=== PATIENT | female | born 1940 | race African-American/Black ===

== ENCOUNTER 2020-07-02 19:07 | Inpatient (IN) | payer MEDICARE ==
[~2020-07-02] VITALS: Ht 152.4 cm; Wt 51.3 kg
--- NOTE | 2020-07-02 19:18 | NUR ---
at bedside for MSE.
[2020-07-02] MEDS ORDERED: TRAZ-182 PO (19:27)
[2020-07-02] MEDS ORDERED: MIRT15TA7 PO (19:27)
[2020-07-02] MEDS ORDERED: AMLO10TA7 PO (19:27)
[2020-07-02] MEDS ORDERED: BENA20TA9 PO (19:27)
[2020-07-02] MEDS ORDERED: ARIP15TA3 PO (19:27)
[2020-07-02] MEDS ORDERED: CLON1TAB12 PO (19:27)
--- NOTE | 2020-07-02 19:39 | NUR ---
Pt medically cleared pt. MHU contacted for room, 139 A given. MHU nurse will call back for report.
[2020-07-02] MEDS ORDERED: NITROFURANTOIN/NITROFURAN MAC 100 MG CAPSULE PO ONE ×2 (19:45→19:46)
--- NOTE | 2020-07-02 20:25 | NUR ---
Report given to Saadia TIRADO. Pt admitted to [facility]. Adm MD: Dr. Lerma/Karla.
[2020-07-02 20:34] LABS: *BILIRUBIN,URIN 1+ (NEGATIVE); *CLARITY,URINE CLEAR (CLEAR); *COLOR,URINE YELLOW (YELLOW); *KETONES,URINE NEGATIVE (NEGATIVE); *UROBILINOGEN,URINE 0.2 E.U./dl (NORMAL); LEUKOCYTE ESTERASE ,URINE NEGATIVE (NEGATIVE); NITRITE, URINE NEGATIVE (NEGATIVE); PH,URINE 5.5 (5.0-8.0); UGLUCOSE NEGATIVE (NEGATIVE)
[2020-07-02 20:35] LABS: *BLOOD, URINE TRACE INTACT (NEGATIVE)
[2020-07-02] MEDS ORDERED: ACETAMINOPHEN 325 MG TABLET PO PRN (20:45)
[2020-07-02] MEDS ORDERED: TEMAZEPAM 7.5 MG CAPSULE PO PRN (20:45)
[2020-07-02] MEDS ORDERED: BLOOD SUGAR DIAGNOSTIC 1 EACH STRIP VI ONE (20:45)
[2020-07-02] MEDS ORDERED: MAG HYDROX/AL HYDROX/SIMETH 30 ML LIQUID UDC PO PRN (20:45)
[2020-07-02] MEDS ORDERED: MAGNESIUM HYDROXIDE 30 ML LIQUID UDC PO PRN (20:45)
--- NOTE | 2020-07-02 20:45 | NUR ---
GPS ADMISSION NOTE: Patient is a 79 year old female, brought in to the hospital via ambulance from [facility], admitted on a 5150 from an assisted living.Patient is admitted on a 5150 for GD. Per hold patient is throwing away her psychiatric medications, increasingly paranoid when offered food. Increased deteriation , not eating and covered in feces. Upon face to face evaluation patient appeared unkept and disheveled. Her behavior was anxious and disoriented to place and reason why she was here. When offered a snack , the patient refused. A shower was given and the patient looked thin. Current weight 113lbs upon admission. Patient unable to finish interview d/t poor concentration and slightly anxious. A Patients rights handbook was provided along with the Advisement. VS are stable. Dr. Griffin was notified of admission and medications were reconciled. Patient was oriented to the environment and treatment plan at this time. No behavioral issues noted. Continuing to monitor for safety, encourage food and fluids, and provide assistance when needed. Patient denies SI and HI.
[2020-07-02 20:54] LABS: BACTERIA,URINE NONE SEEN /HPF (NONE SEEN); SQUAMOUS EPITHELIAL CELL,UR FEW /HPF (NONE SEEN); WBC,URINE 0-3 /HPF (0-3)
[2020-07-02 21:37] VITALS: BP 144/81
[2020-07-02] MEDS: LORAZEPAM 1 MG TABLET PO PRN (21:45)
--- NOTE | 2020-07-03 06:09 | NUR ---
Pt slept 8.0 hours and received a shower. Pt needs were met and safety measures remain intact. Will endorse to oncoming staff.
[2020-07-03 07:16] LABS: BILIRUBIN,TOTAL 0.2 mg/dL (0.2-1.0); CREATININE 0.8 mg/dL (0.6-1.3); POTASSIUM 3.7 mmol/L (3.5-5.1); TOTAL PROTEIN, SERUM 6.5 g/dL (6.4-8.2)
[2020-07-03 07:30] VITALS: BP 146/76
[2020-07-03] MEDS: BENAZEPRIL HCL 20 MG TABLET PO SCH (08:19)
[2020-07-03] MEDS: AMLODIPINE 10 MG TABLET PO SCH (08:19)
--- NOTE | 2020-07-03 11:29 | NUR ---
GRACIE Initial Discharge Plan: Patient currently resides at [facility] [address] [address], [place] [address] ([phone]). Spoke with patient's rehabilitation caseworker at [facility] [place] ([phone]) who stated that they are involved in the patient's care and the patient will return to her apartment at the assisted living facility upon discharge. GRACIE will continue to work with patient and MD to ensure a safe and proper discharge plan.
--- NOTE | 2020-07-03 11:30 | NUR ---
GRACIE Guidance Counselor Contact: GRACIE spoke with patient's casey saw operator at [facility] in [place], Jacquelin Uriel ([phone]) who stated that they are involved in the patient's care and the patient will return to her apartment at the assisted living facility upon discharge. Jacquelin stated that she is looking into providing an [facility] caregiver for the patient to help with medication management. Jacquelin stated that the patient receives Meals on Wheels and the [facility] [address], [place] [address] ([phone]) also provides meals daily. Addendum: 07/03/20 at 1134 by BRENNA SAL Jacquelin stated that the patient's son, Prashanth Justice ([phone]) is estranged and does not want to be involved in the patient's care. Patient does not have a DPOA or Conservator.
--- NOTE | 2020-07-03 11:45 | NUR ---
Firearms Report: [employer] completed and submitted a [employer] firearms report for 5150 grave disability certification. A copy of report has been placed in patient chart.
[2020-07-03] MEDS: ARIPIPRAZOLE 10 MG TABLET PO SCH (11:49)
[2020-07-03 16:00] VITALS: BP 133/87
--- NOTE | 2020-07-03 17:58 | NUR ---
Patient sits quietly in activity room. Participates in activities and therapy. Patient assisted in walking. unsteady gait noted. Able to walk in the hallway, need standby assist. Patient no agitation noted during the shift. Compliant with medication. will continue monitor
[2020-07-03] MEDS: MIRTAZAPINE 15 MG TABLET PO SCH (20:19)
[2020-07-03] MEDS: TRAZODONE 50 MG TABLET PO SCH (20:19)
[2020-07-03 20:24] VITALS: BP 127/69
[2020-07-04 07:30] VITALS: BP 140/67
[2020-07-04] MEDS: ARIPIPRAZOLE 10 MG TABLET PO SCH (08:37)
[2020-07-04] MEDS: BENAZEPRIL HCL 20 MG TABLET PO SCH (08:37)
[2020-07-04] MEDS: AMLODIPINE 10 MG TABLET PO SCH (08:37)
--- NOTE | 2020-07-04 09:10 | NUR ---
Patient in bed, awake and verbally responsive. Patient is calm, No SI/HI noted. Compliant with medication and treatment. Safety and fall precaution in place. kept clean and comfortable. Will continue to monitor.
[2020-07-04 16:09] VITALS: BP 124/60
[2020-07-04 20:00] VITALS: BP 112/55
[2020-07-04] MEDS: TRAZODONE 50 MG TABLET PO SCH (21:45)
[2020-07-04] MEDS: MIRTAZAPINE 15 MG TABLET PO SCH (21:45)
[2020-07-05 07:30] VITALS: BP 162/63
[2020-07-05] MEDS: LORAZEPAM 1 MG TABLET PO PRN (08:40)
[2020-07-05] MEDS: ARIPIPRAZOLE 10 MG TABLET PO SCH (08:40)
[2020-07-05] MEDS: BENAZEPRIL HCL 20 MG TABLET PO SCH (08:41)
[2020-07-05] MEDS: AMLODIPINE 10 MG TABLET PO SCH (08:42)
[2020-07-05 16:00] VITALS: BP 106/53
[2020-07-05 20:00] VITALS: BP 94/58
[2020-07-05] MEDS: MIRTAZAPINE 15 MG TABLET PO SCH (20:20)
[2020-07-05] MEDS: TRAZODONE 50 MG TABLET PO SCH (20:20)
[2020-07-06 07:30] VITALS: BP 136/67
[2020-07-06] MEDS: AMLODIPINE 10 MG TABLET PO SCH (10:29)
[2020-07-06] MEDS: ARIPIPRAZOLE 10 MG TABLET PO SCH (10:29)
[2020-07-06] MEDS: BENAZEPRIL HCL 20 MG TABLET PO SCH (10:30)
[2020-07-06 16:35] VITALS: BP 123/67
[2020-07-06 20:00] VITALS: BP 119/61
[2020-07-06] MEDS: MIRTAZAPINE 15 MG TABLET PO SCH (20:21)
[2020-07-06] MEDS: TRAZODONE 50 MG TABLET PO SCH (20:21)
--- NOTE | 2020-07-07 05:28 | NUR ---
GPS: Remain calm and cooperative with meds and care. noted isolative. slept well through the night. kept clean and dry. resting in comfortably at this time.
--- NOTE | 2020-07-07 05:52 | NUR ---
slept 9.30 hrs through the night.
[2020-07-07 07:47] VITALS: BP 151/82
[2020-07-07] MEDS: ARIPIPRAZOLE 10 MG TABLET PO SCH (08:10)
[2020-07-07] MEDS: AMLODIPINE 10 MG TABLET PO SCH (08:11)
[2020-07-07] MEDS: BENAZEPRIL HCL 20 MG TABLET PO SCH (08:15)
[2020-07-07 16:47] VITALS: BP 127/70
[2020-07-07] MEDS: TRAZODONE 50 MG TABLET PO SCH (20:23)
[2020-07-07] MEDS: MIRTAZAPINE 15 MG TABLET PO SCH (20:23)
[2020-07-07 20:58] VITALS: BP 113/60
[2020-07-08 07:30] VITALS: BP 145/71
--- NOTE | 2020-07-08 07:30 | NUR ---
received patient in her bed , patient compliant with medication no distress at time, safety provided, will continue monitor
[2020-07-08] MEDS: ARIPIPRAZOLE 10 MG TABLET PO SCH (08:07)
[2020-07-08] MEDS: AMLODIPINE 10 MG TABLET PO SCH (08:09)
[2020-07-08] MEDS: BENAZEPRIL HCL 20 MG TABLET PO SCH (08:09)
[2020-07-08 15:07] VITALS: BP 104/52
[2020-07-08] MEDS: ENSURE WITH FIBER 237 ML LIQUID (CHOCOLATE) PO SCH (16:44)
[2020-07-08] MEDS: MIRTAZAPINE 15 MG TABLET PO SCH (20:13)
[2020-07-08] MEDS: TRAZODONE 50 MG TABLET PO SCH (20:13)
[2020-07-08 20:43] VITALS: BP 113/57
[2020-07-09 07:30] VITALS: BP 121/75
[2020-07-09] MEDS: ENSURE WITH FIBER 237 ML LIQUID (CHOCOLATE) PO SCH (08:29)
[2020-07-09] MEDS: AMLODIPINE 10 MG TABLET PO SCH (08:33)
[2020-07-09] MEDS: BENAZEPRIL HCL 20 MG TABLET PO SCH (08:33)
[2020-07-09] MEDS: ARIPIPRAZOLE 10 MG TABLET PO SCH (08:33)
--- NOTE | 2020-07-09 09:40 | NUR ---
GRACIE PC Hearing: Patient had probable cause hearing today and it was upheld for grave disability.
--- NOTE | 2020-07-09 12:32 | NUR ---
Patient is cooperative and calm but is guarded and has minimal insight into her mental illness. patient requires re-education about reason for admission and being placed on an involuntary hold. patient denies SI/HI, denies AH/VH. she is adherent with medication, no adverse reaction noted. patient is able to tolerate food and fluids. patient requires assistance with ambulation due to unsteady gait but able to tolerate activity well.
[2020-07-09 15:49] VITALS: BP 105/51
[2020-07-09] MEDS: MIRTAZAPINE 15 MG TABLET PO SCH (20:10)
[2020-07-09] MEDS: TRAZODONE 50 MG TABLET PO SCH (20:10)
[2020-07-09 20:29] VITALS: BP 112/57
[2020-07-10 07:30] VITALS: BP 141/63
[2020-07-10] MEDS: AMLODIPINE 10 MG TABLET PO SCH (09:10)
[2020-07-10] MEDS: ARIPIPRAZOLE 10 MG TABLET PO SCH (09:10)
[2020-07-10] MEDS: BENAZEPRIL HCL 20 MG TABLET PO SCH (09:12)
[2020-07-10] MEDS: ENSURE WITH FIBER 237 ML LIQUID (CHOCOLATE) PO SCH (09:13)
[2020-07-10 16:00] VITALS: BP 141/71
--- NOTE | 2020-07-10 17:00 | NUR ---
Pt received resting in bed, assessed, denies pain, and no acute distress. Pt compliant with routine medications. Pt denies SI/HI with no AH/VH present. Pt able to CFS with poor insight to mental health issues. Pt refused to participate in activities. Pt calm and cooperative, requesting to rest most of the shift. All needs promptly attended to. Will continue to monitor and follow up accordingly.
[2020-07-10 20:00] VITALS: BP 116/52
[2020-07-10] MEDS: TRAZODONE 50 MG TABLET PO SCH (20:59)
[2020-07-10] MEDS: MIRTAZAPINE 15 MG TABLET PO SCH (20:59)
--- NOTE | 2020-07-11 02:40 | NUR ---
Received patient in bed, calm and cooperative. Med compliant. Patient has poor insight and poor judgement. Patient dropped water all over the restroom. Patient will remain in a psych facility for further evaluation and treatment.
[2020-07-11 07:30] VITALS: BP 137/89
--- NOTE | 2020-07-11 08:07 | NUR ---
SW Discharge Note: Patient will be discharged back to [facility] [address] [place] [address] ([phone]). Patient's manager of case at [facility] in [place], Jacquelin Trevino ([phone]) arranged transportation for the patient via [employer] today at 11AM. Patient is alert and oriented times 4 and is aware and agreeable with discharge plan. Patient presents with euthymic mood and congruent affect. Patient denies suicidal or homicidal ideation. Patient will be following up with her psychiatrist Dr. Jesus at [facility] [address] [place] [address] ([phone]) and has a follow up appointment scheduled on 07/18/20 at 2PM via telehealth. Patient is referred to [facility] [address] [place] [address] ([phone]) Dr. Pierre and will follow up post discharge.
[2020-07-11] MEDS: AMLODIPINE 10 MG TABLET PO SCH (08:29)
[2020-07-11] MEDS: ARIPIPRAZOLE 10 MG TABLET PO SCH (08:30)
[2020-07-11] MEDS: ENSURE WITH FIBER 237 ML LIQUID (CHOCOLATE) PO SCH (08:30)
[2020-07-11 08:31] VITALS: BP 137/89
[2020-07-11] MEDS: BENAZEPRIL HCL 20 MG TABLET PO SCH (08:31)
--- NOTE | 2020-07-11 10:51 | NUR ---
Received Patient awake, AOX3 in stable condition. Patient will be discharged back to [facility] Patient will be steel pickler arrange by assisted living facility. Patient presents with euthymic mood and congruent affect. Patient denies suicidal or homicidal ideation. Patient will ff up with primary physician and psychiatrist. Patient no complaint of pain/discomfort. will continue monitor
--- NOTE | 2020-07-11 12:50 | NUR ---
Patient discharge to assisted living at 1150AM in stable condition. Patient sweet pickled fruit maker by ambulance. Patient discharge prescription and summary given to EMT. Patient denies pain/discomfort. not in distress. no behavioral problem.
== END 2020-07-11 11:50 | DRG 885 ==
LOC: ER 19:07 → GPS 20:32
PROVIDERS: ADMIT Psychiatry & Neurology Psychiatry
DX: F20.0 Paranoid schizophrenia (principal); E44.1 Mild protein-calorie malnutrition; E87.1 Hypo-osmolality and hyponatremia; E78.5 Hyperlipidemia, unspecified; R62.7 Adult failure to thrive; I10 Essential (primary) hypertension; E88.09 Other disorders of plasma-protein metabolism, not elsewhere classified; Z68.22 Body mass index [BMI] 22.0-22.9, adult
CPT/HCPCS: 36415; A4663; C1758